=== PATIENT | female | born 1985 ===

== ENCOUNTER 2017-09-27 12:30 | Emergency (ER) | payer OTHER ==
[2017-09-27 13:06] VITALS: TEMP 98.8
--- NOTE | 2017-09-27 14:58 | RAD ---
PROCEDURE: Left Hand and 3rd digit Radiographs. HISTORY: finger pain/swelling s/p dog bite COMPARISON: None. FINDINGS: BONES: Normal. No fracture. JOINTS: Normal. No osteoarthritic changes. SOFT TISSUES: Normal. OTHER FINDINGS: None. IMPRESSION: Normal left hand radiographs.
[2017-09-27] MEDS ORDERED: Amoxicillin-Clav 875-125 mg Tab PO STA (15:04)
--- NOTE | 2017-09-27 15:08 | ED PDOC ---
Arrival/HPI - General Chief Complaint: Bite Time Seen by Provider: 09/27/17 13:08 Historian: Patient - History of Present Illness Narrative History of Present Illness (Text): 09/27/17 15:05 32yo female with no Past medical history who present with complaint of pain and swelling to her left 3rd finger s/p dog bite a month ago. States she didn't see a Doctor after the bite, but decided to come in today secondary to the persistent pain and swelling. States the swelling usually goes down and then swells up again whenever she lifts weight. She denies fever, chills, nausea, focal weakness, any other complaint. States she is up todate with her TD vaccine and the dog is vaccinated. Past Medical History - Provider Review Nursing Documentation Reviewed: Yes - Psychiatric Hx Psychophysiologic Disorder: No Hx Substance Use: No - Surgical History Hx Section: Yes Family/Social History - Physician Review Nursing Documentation Reviewed: Yes Family/Social History: Unknown Family HX Smoking Status: Never Smoked Hx Alcohol Use: No Hx Substance Use: No Allergies/Home Meds Allergies/Adverse Reactions: Allergies No Known Allergies Allergy (Verified 09/27/17 13:00) Review of Systems - Physician Review All systems were reviewed & negative as marked: Yes - Review of Systems Constitutional: Normal Eyes: Normal ENT: Normal Respiratory: Normal Cardiovascular: Normal Gastrointestinal: Normal Genitourinary Female: Normal Musculoskeletal: Arthralgias (Left 3rd finger) Skin: Normal Neurological: Normal Endocrine: Normal Hemo/Lymphatic: Normal Psychiatric: Normal Physical Exam Vital Signs Reviewed: Yes Vital Signs Temp Pulse Resp BP Pulse Ox 09/27/17 15:30 80 18 131/72 99 09/27/17 13:01 98.8 F 66 16 125/89 98 Temperature: Afebrile Blood Pressure: Normal Pulse: Regular Respiratory Rate: Normal Appearance: Positive for: Well-Appearing, Non-Toxic, Comfortable Pain Distress: None Mental Status: Positive for: Alert and Oriented X 3 - Systems Exam Head: Present: Atraumatic, Normocephalic Pupils: Present: PERRL Extroacular Muscles: Present: EOMI Conjunctiva: Present: Normal Mouth: Present: Moist Mucous Membranes Neck: Present: Normal Range of Motion Respiratory/Chest: Present: Clear to Auscultation, Good Air Exchange. No: Respiratory Distress, Accessory Muscle Use Cardiovascular: Present: Regular Rate and Rhythm, Normal S1, S2. No: Murmurs Abdomen: No: Tenderness, Distention, Peritoneal Signs Back: Present: Normal Inspection Upper Extremity: Present: NORMAL PULSES, Tenderness (Left 3rd finger over the healed wound with fibrous tissue on the volar aspect), Erythema (Of the healed wound with fibrous tissue), Neurovascularly Intact. No: Cyanosis, Edema, Normal ROM (Decreased on ROM secondary to pain and fibrous healing wound on the volar aspect of finger), Temperature Abnormalties Lower Extremity: Present: Normal Inspection. No: Edema Neurological: Present: GCS=15, CN II-XII Intact, Speech Normal Skin: Present: Warm, Dry, Normal Color. No: Rashes Psychiatric: Present: Alert, Oriented x 3, Normal Insight, Normal Concentration Medical Decision Making ED Course and Treatment: 09/27/17 20:12 Left hand xray - Negative for fracture PT was treated with Augmentin and ibuprofen and referred to her PMD/hand specialist. she was NVI. Limited ROM of 3rd finger was noted secondary to pain or tendon injury. Strength was 5/5. - RAD Interpretation Radiology Orders: 09/27/17 13:38 HAND LEFT 3RD DIGIT (FINGER) [RAD] Stat - Medication Orders Current Medication Orders: Discontinued Medications Amoxicillin/Clavulanate Potassium (Augmentin 875 Mg-125 Mg Tab) 1 tab PO STAT STA PRN Reason: Protocol Stop: 09/27/17 15:05 Last Admin: 09/27/17 15:34 Dose: 1 tab Ibuprofen (Motrin Tab) 800 mg PO STAT STA Stop: 09/27/17 15:06 Last Admin: 09/27/17 15:34 Dose: 800 mg Disposition/Present on Arrival - Present on Arrival Any Indicators Present on Arrival: No History of DVT/PE: No History of Uncontrolled Diabetes: No Urinary Catheter: No History of Decub. Ulcer: No History Surgical Site Infection Following: None - Disposition Have Diagnosis and Disposition been Completed?: Yes Diagnosis: Dog bite, Finger pain Disposition: HOME/ ROUTINE Disposition Time: 15:10 Patient Plan: Discharge Condition: STABLE Discharge Instructions (ExitCare): Animal Bites (DC) Additional Instructions: Follow up with your doctor/Clinic Return to Emergency department for any new symptoms Prescriptions: Amoxicillin/Clavulanate [Augmentin 875 MG-125 MG] 1 tab PO BID #14 tab Ibuprofen [Motrin Tab] 600 mg PO Q6 #20 tab Referrals: PCP,NO [Primary Care Provider] - Follow up with primary Sandip Munoz MD [Staff Provider] - Follow up with primary Forms: [employer] (Slovak)
[2017-09-27 16:03] VITALS: BP 131/72; PULSE 80; RESP 18; O2SAT 99
== END 2017-09-27 16:07 | disposition home or self-care (01) ==
LOC: ED 12:30
DX: M79.645 Pain in left finger(s) (principal); W54.0XXA Bitten by dog, initial encounter